=== PATIENT | female | born 1985 ===

== ENCOUNTER 2017-12-22 10:01 | Emergency (ER) | payer OTHER ==
[2017-12-22 10:36] VITALS: BP 114/65; RESP 18
[2017-12-22] MEDS ORDERED: Sodium Chloride 0.9% 1,000 ML IV STA (11:32)
--- NOTE | 2017-12-22 11:50 | ED PDOC ---
HPI: CCC, URI, Sore Throat Time Seen by Provider: 12/22/17 10:29 Chief Complaint (Nursing): Fever Chief Complaint (Provider): Fever 5 days, 103.6 at home today History Per: Patient History/Exam Limitations: no limitations Have you had recent travel within the past 21 days to any of the following countries: [place], [place], [place] or [place]?: No Onset/Duration Of Symptoms: Days Current Symptoms Are (Timing): Still Present Sick Contacts (Context): None Associated Symptoms: Fever, Chills, Cough (2 days ), Myalgias, Nasal Congestion , Diarrhea Ear Symptoms: Bilateral: None Additional Complaint(s): 32 yo female with no medical problems presents with fever for 5 days. PT states she was seen by her PCP and given tamiflu but the fever was highest today at 103.6. PT states she took motrin. PT also reports 2 days of coughing. Pt states the first 2 days she also had abdominal pain and diarrhea. Abdominal pain has resolved but watery diarrhea continues. Past Medical History Reviewed: Historical Data, Nursing Documentation, Vital Signs Vital Signs: Last Vital Signs Temp 98.5 F 12/22/17 13:17 Pulse 124 H 12/22/17 10:35 Resp 18 12/22/17 10:35 BP 114/65 12/22/17 10:35 Pulse Ox 96 12/22/17 11:50 - Medical History PMH: No Chronic Diseases - Surgical History Surgical History: No Surg Hx - Family History Family History: States: No Known Family Hx - Living Arrangements Living Arrangements: With Family - Social History Current smoker - smoking cessation education provided: No Alcohol: None Drugs: Denies - Home Medications Home Medications: Ambulatory Orders Medication Instructions Recorded Azithromycin 250 mg PO DAILY #6 tab 12/22/17 - Allergies Allergies/Adverse Reactions: Allergies Allergy/AdvReac Type Severity Reaction Status Date / Time No Known Allergies Allergy Verified 12/22/17 10:27 Review of Systems ROS Statement: Except As Marked, All Systems Reviewed And Found Negative Constitutional: Positive for: Fever Gastrointestinal: Positive for: Diarrhea. Negative for: Abdominal Pain Musculoskeletal: Negative for: Back Pain Skin: Negative for: Rash Neurological: Positive for: Weakness, Headache Physical Exam - Reviewed Nursing Documentation Reviewed: Yes Vital Signs Reviewed: Yes - Physical Exam Appears: Positive for: Well, Non-toxic, No Acute Distress Head Exam: Positive for: ATRAUMATIC, NORMAL INSPECTION, NORMOCEPHALIC Skin: Positive for: Normal Color, Warm, DRY Eye Exam: Positive for: Normal appearance ENT: Positive for: Normal ENT Inspection Neck: Positive for: Normal, Painless ROM Cardiovascular/Chest: Positive for: Regular Rate, Rhythm Respiratory: Positive for: CNT, Normal Breath Sounds Gastrointestinal/Abdominal: Positive for: Normal Exam, Bowel Sounds, Soft. Negative for: Tenderness Back: Positive for: Normal Inspection Extremity: Positive for: Normal ROM Neurologic/Psych: Positive for: Alert, Oriented - Laboratory Results Result Diagrams: 12/22/17 11:55 12/22/17 11:55 - ECG O2 Sat by Pulse Oximetry: 96 Medical Decision Making Medical Decision Making: Discussed labs with patient. Antibiotics in 2 days if symptoms persist. Please follow-up with PCP. Repeat vitals normal. Disposition - Clinical Impression Clinical Impression: Fever - Patient ED Disposition Is Patient to be Admitted: No Counseled Patient/Family Regarding: Diagnosis, Need For Followup, Rx Given - Disposition Disposition: Routine/Home Disposition Time: 13:51 Condition: STABLE Prescriptions: Azithromycin 250 mg PO DAILY #6 tab Instructions: Viral Syndrome (ED) Forms: [employer] (Pashto)
[2017-12-22 12:04] LABS: BASO % 0.7 % (0.0-2.0); EOS # 0.1 K/uL (0.0-0.7); EOS % 1.2 % (0.0-4.0); HEMOGLOBIN 13.8 g/dL (12.0-16.0); LYMPH # 2.2 K/uL (1.0-4.3); MEAN CORPUSCULAR HEMOGLOBIN 28.8 pg (27.0-31.0); MEAN CORPUSCULAR HGB CONC 34.3 g/dL (33.0-37.0); MEAN PLATELET VOLUME 7.9 fl (7.2-11.7); MONO # 0.3 K/uL (0.0-0.8); MONO % 5.6 % (0.0-10.0); NEUT # 2.8 K/uL (1.8-7.0); NEUT % 52.5 % (50.0-75.0); NRBC % 0.5 % (0.0-0.0); RBC 4.78 Mil/uL (3.80-5.20); RED CELL DISTRIBUTION WIDTH 13.7 % (11.5-14.5); WHITE BLOOD COUNT 5.4 K/uL (4.8-10.8)
[2017-12-22 12:06] LABS: VENOUS BLOOD GAS BASE EXCESS 0.4 mmol/L (0.0-2.0); VENOUS BLOOD GAS PCO2 29 mmHg (40-60); VENOUS BLOOD GAS PO2 80 mm/Hg (30-55)
[2017-12-22 12:22] LABS: ALBUMIN 3.6 g/dL (3.5-5.0); ALT/SGPT 99 U/L (9-52); AST/SGOT 74 U/L (14-36); BLOOD UREA NITROGEN 6 mg/dl (7-17); CALCIUM 8.5 mg/dL (8.4-10.2); GFR AFRICAN-AMERICAN > 60; GFR NON-AFRICAN AMERICAN > 60
[2017-12-22 13:17] VITALS: TEMP 98.5
--- NOTE | 2017-12-22 13:17 | RAD ---
HISTORY: cough, fever COMPARISON: No prior. TECHNIQUE: Chest PA and lateral FINDINGS: LUNGS: No active pulmonary disease. PLEURA: No significant pleural effusion identified. No pneumothorax apparent. CARDIOVASCULAR: Normal. OSSEOUS STRUCTURES: No significant abnormalities. VISUALIZED UPPER ABDOMEN: Normal. OTHER FINDINGS: None. IMPRESSION: No active disease.
[2017-12-22 14:41] VITALS: PULSE 62; O2SAT 95
== END 2017-12-22 14:42 | disposition home or self-care (01) ==
LOC: H.ER 10:01
DX: B34.9 Viral infection, unspecified (principal)
CPT/HCPCS: 71046; 80053; 81025; 82803; 85025; 87804; 96360; 99284; J7040